=== PATIENT | female | born 1965 | race Caucasian/White ===

== ENCOUNTER 2021-03-11 23:36 | Emergency (ER) | payer OTHER ==
[2021-03-12] MEDS ORDERED: Morphine 2 MG/ML VIAL ONE (01:37)
[2021-03-12] MEDS ORDERED: Mag-Al Plus 1200 MG/1200 MG/120 MG/30 ML UDCUP ONE ×2 (01:38→02:30)
[2021-03-12] MEDS ORDERED: Ondansetron PF 4 MG/2 ML Vial ONE (01:38)
[2021-03-12] MEDS ORDERED: Lidocaine Viscous Sol 2% 15 ml UD Cup ONE ×2 (01:38→02:30)
[2021-03-12] MEDS ORDERED: Ketorolac Tromethamine 30 MG/ML VIAL ONE (01:38)
[2021-03-12] MEDS ORDERED: Morphine 4 MG/ML VIAL ONE (01:38)
[2021-03-12 01:48] LABS: #Lymphocytes 1.6 thou/uL (1.20-3.40); #Monocytes 0.3 thou/uL (0.11-0.59); #Neutrophils 3.2 thou/uL (1.40-6.50); %Basophils 0.6 % (0.0-1.0); %Eosinophils 0.7 % (0.0-10.0); %Lymphocytes 30.8 % (21.0-51.0); %Monocytes 6.5 % (0.0-10.0); %Neutrophils 61.4 % (42.0-75.0); Mean Corpuscular HGB CONC 32.1 g/dL (32.0-36.0); Mean Corpuscular Hemoglobin 29.5 pg (27.0-31.0); Mean Platelet Volume 8.7 fL (7.4-10.4); Platelet Count 153 thou/uL (130-400); RBC Distribution Width 12.2 % (11.5-14.5); Red Blood Cell (RBC) Count 4.75 mill/uL (4.20-5.40); White Blood Cell (WBC) Count 5.2 thou/uL (4.8-10.8)
[2021-03-12 04:51] LABS: Bilirubin Negative (Negative); Blood, Urine Negative (Negative); Clarity Clear (Clear); Glucose, Urine (Dipstick) Negative (Negative); Ketone, Urine Negative (Negative); Leukocyte Negative (Negative); Nitrite Negative (Negative); Protein, Urine (Dipstick) Negative (Neg-Trace); Urobilinogen 0.2 mg/dL (Less than 2)
[2021-03-12 04:52] LABS: Specific Gravity, Urine 1.031 (1.002-1.036)
== END 2021-03-12 04:35 | disposition home or self-care (01) ==
LOC: BURERS 23:36
DX: U07.1 COVID-19 (principal)
CPT/HCPCS: 71045; 81003; 83690; 85025; 96374; 96375; J1885; J2270; J2405; J7620

== ENCOUNTER 2021-03-14 09:51 | Emergency (ER) | payer OTHER | END 2021-03-14 10:25 | disposition home or self-care (01) | LOC: BURERS 09:51 | DX: U07.1 COVID-19 (principal) | CPT/HCPCS: 99283 ==

== ENCOUNTER 2023-06-16 02:22 | Emergency (ER) | payer OTHER ==
[2023-06-16] MEDS ORDERED: Dexamethasone 10 MG/ML VIAL ONE (03:08)
== END 2023-06-16 03:19 | disposition home or self-care (01) ==
LOC: BURERS 02:22
DX: J20.9 Acute bronchitis, unspecified (principal)
CPT/HCPCS: 71046; 96372; J1100